=== PATIENT | female | born 1965 | race Caucasian/White ===

== ENCOUNTER 2020-09-15 13:00 | Emergency (ER) | payer MEDICAID ==
[2020-09-15] MEDS ORDERED: BUFFERED LIDOCAINE 10 ML SYRINGE SUBQ STA (13:53)
--- NOTE | 2020-09-15 14:14 | ED Physician Documentation ---
History of Present Illness - Stated complaint Stated Complaint: WOUND - Chief complaint Chief Complaint: Wound - History obtained from History obtained from: Patient - Additonal information Additional information: 55-year-old female here for evaluation of an abscess that has developed on her chest just medial to the right breast. She has been taking Bactrim for about 1 week however the swelling has gotten progressively worse. She has attempted to try and get the abscess to drain but has been unsuccessful. She denies fevers but reports pain in the area. She does have a history of abdominal cellulitis a few years ago that ultimately ruptured and drained on its own. Denies history of diabetes. Has been compliant with Bactrim. Review of Systems Constitutional: reports: Reviewed and negative Eyes: reports: Reviewed and negative Ears: reports: Reviewed and negative Nose: reports: Reviewed and negative Throat: reports: Reviewed and negative Cardiac: reports: Reviewed and negative Respiratory: reports: Reviewed and negative GI: reports: Reviewed and negative : reports: Reviewed and negative Skin: reports: Lesions (abscess right chest) Musculoskeletal: reports: Neck pain Neurologic: reports: Reviewed and negative PD PAST MEDICAL HISTORY - Past Medical History Past Medical History: Yes Cardiovascular: Hypertension Respiratory: Asthma GI: GERD, Hiatal hernia - 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, 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 - Allergies Allergies/Adverse Reactions: Allergies Allergy/AdvReac Type Severity Reaction Status Date / Time amoxicillin Allergy Unknown Verified 09/15/20 13:37 bupropion [From Wellbutrin] Allergy Unknown Verified 09/15/20 13:37 iodine Allergy Unknown Verified 09/15/20 13:37 oxycodone Allergy Unknown Verified 09/15/20 13:37 povidone-iodine Allergy Unknown Verified 09/15/20 13:37 [From Betadine] soap [From Betadine] Allergy Unknown Verified 09/15/20 13:37 - Social History Does the pt smoke?: No Smoking Status: Never smoker PD ED PE EXPANDED - Derm Derm: Abscess (3x3 cm abscess right chest just medial to the brest adjacent to the sternum. fluctuant. no drainage) Results - Vitals Vitals: Vital Signs - 24 hr 09/15/20 13:31 Temperature 36.3 C L Heart Rate 83 Respiratory 16 Rate Blood Pressure 115/94 H O2 Saturation 100 Oxygen O2 Source Room air Procedures - Abscess I&D (location) right chest Preparation: Chlorhexadine Incision: Incised with scalpel, Purulent drainage, Loculations broken, Irrigated, Packed, Culture obtained Other: Pt tolerated well, Dressing applied, Other (already on bactrim) PD MEDICAL DECISION MAKING - ED course Complexity details: re-evaluated patient, considered differential, d/w patient ED course: 55-year-old female presents the emergency department for evaluation of a right chest wound abscess that has failed to improve with a prescription of Bactrim. On exam there was obvious fluctuance. We did do incision and drainage at the bedside with a moderate amount of purulent fluid drained as well as some small loculations. The wound was packed with quarter inch gauze and a culture was obtained. I have advised the patient to remove the packing in 24 hours and other routine care was discussed. No new antibiotics were prescribed today as I feel she should simply finish the course that she is already on. Emergent return precautions discussed for worsening pain or failure of the abscess to resolve. Departure - Departure Disposition: 01 Home, Self Care Clinical Impression: Abscess Condition: Stable Record reviewed to determine appropriate education?: Yes Instructions: ED Abscess IandD Follow-Up: MELANIE TEJEDA [Primary Care Provider] - Comments: Kassidy the abscess has been drained and, therefore I would expect that it starts to feel better over the next 24 to 48 hours. Tomorrow afternoon if you are able I would like you to take a warm shower. When in the shower I would like you to remove the packing. It is okay to allow water and gentle soap to rinse through the wound. Once out of the shower apply any antibiotic ointment such as Neosporin or bacitracin to the wound and cover with a bandage. Please complete your course of antibiotics that you are already on. I would expected this wound to remain red for the next week or so. However the pain should be starting to improve over the next 48 to 72 hours. If not improving, you have fevers, increased pain or any further milky drainage then please return to the emergency department for a second evaluation. I do expect a moderate amount of blood to be on the gauze that is in place over your wound.
[2020-09-15 14:18] VITALS: BP 130/85
== END 2020-09-15 14:30 | disposition home or self-care (01) ==
LOC: ED 13:00
DX: L02.213 Cutaneous abscess of chest wall (principal); I10 Essential (primary) hypertension
CPT/HCPCS: 10060; 87070; 87205

== ENCOUNTER 2021-04-05 | Emergency (ER) | payer MEDICAID ==
--- NOTE | 2021-04-05 00:25 | ED Physician Documentation ---
PD HPI ABD PAIN - Stated complaint Stated Complaint: POST OP, SOA, NAUSEA, CHEST PRESSURE - Chief complaint Chief Complaint: Abd Pain - History obtained from History obtained from: Patient - History of Present Illness Timing - onset: How many hours ago (8) Timing - duration: Hours Timing - details: Gradual onset (The patient had scheduled outpatient EGD and colonoscopy approximately noon today at outside facility. She states there were biopsies done in the stomach and the intestine for polyps. She felt okay going home and had onset after eating of upper abdominal and substernal pain/pressure with nausea.), Still present Quality: Cramping, Aching, Pain Location: Epigastric, Other (substernal) Radiation: Chest Improved by: No: Meds (tried TUMs without improvement) Worsened by: Eating, Palpation (upper abd). No: Breathing Associated symptoms: Nausea. No: Vomiting, Diarrhea, Dysuria Similar symptoms before: Has not had sx before Recently seen: Surgery (Outpatient scheduled EGD and colonoscopy this afternoon approximately noon with standard prep the day before. She felt okay and ate spicy chicken after getting home.) Review of Systems Constitutional: denies: Fever, Chills Nose: denies: Rhinorrhea / runny nose, Congestion Throat: denies: Sore throat Cardiac: reports: Chest pain / pressure. denies: Palpitations Respiratory: denies: Cough, Hemoptysis GI: reports: Abdominal Pain, Nausea. denies: Vomiting, Diarrhea Neurologic: reports: Generalized weakness. 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 - Allergies Allergies/Adverse Reactions: Allergies Allergy/AdvReac Type Severity Reaction Status Date / Time amoxicillin Allergy Unknown Verified 09/15/20 13:37 bupropion [From Wellbutrin] Allergy Unknown Verified 09/15/20 13:37 iodine Allergy Unknown Verified 09/15/20 13:37 oxycodone Allergy Unknown Verified 09/15/20 13:37 povidone-iodine Allergy Unknown Verified 09/15/20 13:37 [From Betadine] soap [From Betadine] Allergy Unknown Verified 09/15/20 13:37 - Social History Does the pt smoke?: No Smoking Status: Never smoker - Family History Family history: reports: CAD PD ED PE NORMAL - Vitals Vital signs reviewed: Yes - General General: Alert and oriented X 3, Well developed/nourished, Other (appears in pain/discomfort.) - Neck Neck: Supple, no meningeal sign, No adenopathy - Cardiac Cardiac: RRR, No murmur - Respiratory Respiratory: Clear bilaterally, Other - Abdomen Abdomen: Normal bowel sounds, Soft, Non distended, No organomegaly, Other (tender in epigastric area with local guarding. No percussion tenderness. Abd not distended. ) - Female Female : Deferred - Rectal Rectal: Deferred - Back Back: No CVA TTP - Derm Derm: Normal color, Warm and dry - Extremities Extremities: No edema, No calf tenderness / cord - Neuro Neuro: Alert and oriented X 3, No motor deficit, Normal speech Results - Vitals Vitals: Vital Signs - 24 hr 04/05/21 04/05/21 04/05/21 00:17 02:23 03:55 Temperature 36.1 C L 36.0 C L 36.1 C L Heart Rate 67 70 68 Respiratory 20 18 18 Rate Blood Pressure 167/77 H 141/73 H 139/71 H O2 Saturation 99 95 100 Oxygen O2 Source Room air - EKG (time done) 00:44 Rate: Rate (enter#) (52) Rhythm: Sinus bradycardia [place]: Normal Intervals: Normal MA QRS: Normal Ischemia: Normal ST segments. No: ST elevation c/w ischemia, ST depression - Labs Labs: Laboratory Tests 04/05/21 04/05/21 04/05/21 00:54 00:54 00:54 WBC 7.4 RBC 4.61 Hgb 12.8 Hct 39.2 MCV 85.0 MCH 27.8 MCHC 32.7 RDW 13.0 Plt Count 241 MPV 9.2 Neut # (Auto) 5.7 Lymph # (Auto) 1.0 L [place] # (Auto) 0.5 Eos # (Auto) 0.1 Baso # (Auto) 0.0 Absolute Nucleated RBC 0.00 Nucleated RBC % 0.0 Sodium 140 Potassium 3.7 Chloride 101 Carbon Dioxide 31 Anion Gap 8.0 BUN 15 Creatinine 0.7 Estimated GFR (MDRD) 87 L Glucose 143 H Calcium 9.5 Total Bilirubin 0.7 AST 23 ALT 37 Alkaline Phosphatase 67 Troponin I High Sens 3.3 Total Protein 6.8 Albumin 4.1 Globulin 2.7 Albumin/Globulin Ratio 1.5 Lipase 30 Urine Color Urine Clarity Urine pH Ur Specific [place] Urine Protein Urine Glucose (UA) Urine Ketones Urine Occult Blood Urine Nitrite Urine Bilirubin Urine Urobilinogen Ur Leukocyte Esterase Urine RBC Urine WBC Ur Squamous Epith Cells Urine Bacteria Ur Microscopic Review Urine Culture Comments 04/05/21 02:40 WBC RBC Hgb Hct MCV MCH MCHC RDW Plt Count MPV Neut # (Auto) Lymph # (Auto) [place] # (Auto) Eos # (Auto) Baso # (Auto) Absolute Nucleated RBC Nucleated RBC % Sodium Potassium Chloride Carbon Dioxide Anion Gap BUN Creatinine Estimated GFR (MDRD) Glucose Calcium Total Bilirubin AST ALT Alkaline Phosphatase Troponin I High Sens Total Protein Albumin Globulin Albumin/Globulin Ratio Lipase Urine Color YELLOW Urine Clarity CLEAR Urine pH 6.5 Ur Specific [place] 1.015 Urine Protein NEGATIVE Urine Glucose (UA) NEGATIVE Urine Ketones NEGATIVE Urine Occult Blood NEGATIVE Urine Nitrite NEGATIVE Urine Bilirubin NEGATIVE Urine Urobilinogen 0.2 (NORMAL) Ur Leukocyte Esterase SMALL H Urine RBC 0-5 Urine WBC 4-5 Ur Squamous Epith Cells MOD Squamous H Urine Bacteria Few Ur Microscopic Review INDICATED Urine Culture Comments NOT INDICATED - Rads (name of study) chest/abd/pelvis CT Radiology: Prelim report reviewed, See rad report PD MEDICAL DECISION MAKING - ED course Complexity details: reviewed results (No signs perforation, free fluid, vascular process. Some GB wall thickening, but patient is not really tender RUQ. Improved with meds here, including GI cocktail. ), re-evaluated patient (feeling much improved after meds. ), considered differential (post EGD/colonoscopy with biopsies. Concern for perforation, post procedure IN, obstruction, pancreatitis, etc. ), d/w patient Departure - Departure Disposition: 01 Home, Self Care Clinical Impression: Upper abdominal pain, History of esophagogastroduodenoscopy (EGD) Chest pain Qualifiers: Chest pain type: unspecified Qualified Code(s): R07.9 - Chest pain, unspecified Condition: Stable Record reviewed to determine appropriate education?: Yes Follow-Up: MELANIE TEJEDA [Primary Care Provider] - Comments: Signs of heart attack on your EKG your blood test. Your blood tests otherwise are good without signs of inflammation of the pancreas liver and no electrolyte abnormalities. Your CT scan does not show any signs of perforation or local fluid collection. There was a hint of inflammation in the wall of the gallbladder but this does not necessarily fit your area of pain. It may appear just slightly inflamed and subsequent to the scope. At this point I think the pain you had was some esophageal irritation and spasming given the normalcy of your testing otherwise. Use ondansetron if needed for nausea and Tylenol or hydrocodone if needed for pain. I would not anticipate further pain episodes beyond a day or so. Antacids may be helpful as well. Follow-up with your surgeon or primary care or return to the ER if persistent symptoms beyond a couple of days. Return if worse.
[2021-04-05] MEDS ORDERED: HYDROmorphone 1 MG/ML CARPUJECT IVP STA (00:48)
[2021-04-05] MEDS ORDERED: SODIUM CHLORIDE 0.9% 1,000 ML IV STA (00:48)
[2021-04-05] MEDS ORDERED: ONDANSETRON 4 MG/2 ML VIAL IVP STA (00:48)
[2021-04-05] MEDS ORDERED: LIDOCAINE VISCOUS 2% 15 ML UDC MM STA (00:49)
[2021-04-05] MEDS ORDERED: MAG HYDROX/AL HYDROX/SIMETH 30 ML UDC PO STA (00:49)
[2021-04-05 00:59] LABS: BASOPHILS % (AUTO) 0.5 %; EOSINOPHILS # (AUTO) 0.1 10^3/uL (0.0-0.7); EOSINOPHILS % (AUTO) 1.9 %; HCT - HEMATOCRIT 39.2 % (37.0-47.0); HGB - HEMOGLOBIN 12.8 g/dL (12.0-16.0); LYMPHOCYTES % (AUTO) 12.9 %; MEAN CORPUSCULAR HEMOGLOBIN 27.8 pg (27.0-31.0); MEAN CORPUSCULAR HGB CONC 32.7 g/dL (32.0-36.0); MEAN PLATELET VOLUME 9.2 fL (7.9-10.8); MONOCYTES # (AUTO) 0.5 10^3/uL (0.0-1.0); MONOCYTES % (AUTO) 7.2 %; NEUTROPHILS # (AUTO) 5.7 10^3/uL (1.5-6.6); PLT - PLATELET COUNT 241 10^3/uL (130-450); RED BLOOD COUNT 4.61 10^6/uL (4.20-5.40); WHITE BLOOD COUNT 7.4 x10^3/uL (4.8-10.8)
[2021-04-05] MEDS ORDERED: IOVERSOL 320 100 ML VIAL IVP ONE ×3 (00:59→02:52)
[2021-04-05 01:12] LABS: ALBUMIN 4.1 g/dL (3.2-5.5); ALBUMIN/GLOBULIN RATIO 1.5 (1.0-2.2); BILIRUBIN,TOTAL 0.7 mg/dL (0.2-1.0); CALCIUM 9.5 mg/dL (8.5-10.3); CREATININE 0.7 mg/dL (0.4-1.0); POTASSIUM 3.7 mmol/L (3.5-5.0); TOTAL PROTEIN 6.8 g/dL (6.7-8.2)
[2021-04-05 02:49] LABS: BILIRUBIN,URINE NEGATIVE (NEGATIVE); CLARITY,URINE CLEAR (CLEAR); GLUCOSE, URINE (UA) NEGATIVE (NEGATIVE); KETONES,URINE (UA) NEGATIVE (NEGATIVE); LEUKOCYTE ESTERASE, URINE SMALL (NEGATIVE); NITRITE,URINE NEGATIVE (NEGATIVE); OCCULT BLOOD,URINE NEGATIVE (NEGATIVE); PH,URINE 6.5 PH (5.0-7.5); PROTEIN,URINE NEGATIVE (NEGATIVE); UROBILINOGEN,URINE 0.2 (NORMAL) E.U./dL (NORMAL)
[2021-04-05 02:58] LABS: BACTERIA,URINE Few /HPF (None Seen); RBC,URINE 0-5 /HPF (0-5); SQUAMOUS EPITHELIAL CELL,UR MOD Squamous (<= Few)
[2021-04-05] MEDS ORDERED: ACETAMINOPHEN 325 MG TABLET PO STA (03:06)
[2021-04-05] MEDS ORDERED: HYDROcod/ACET 5/325 Prepack 4 PO STA (03:40)
[2021-04-05] MEDS ORDERED: ONDANSETRON ODT 4 MG Prepack 2 TL PRN (03:40)
[2021-04-05 03:56] VITALS: BP 139/71
--- NOTE | 2021-04-05 08:30 | CT Report ---
PROCEDURE: CHEST W INDICATIONS: upper abd/chest pain, s/p EGD/biopsies CONTRAST: IV CONTRAST: Optiray 320 ml: 100 PO CONTRAST: *NO PO CONTRAST TECHNIQUE: After the administration of intravenous contrast, 5 mm thick sections acquired from the pulmonary api thompson to the posterior costophrenic angles. 7 mm thick coronal MIP reformats were acquired. For radia tion dose reduction, the following was used: automated exposure control, adjustment of mA and/or kV according to patient size. COMPARISON: CT abdomen pelvis 04/05/2021 FINDINGS: Image quality: Excellent. Lungs and pleura: No acute air space opacities. No pleural effusions or pneumothorax. Central and peripheral airways are patent and normal in caliber. 2 mm lateral left lower lobe pleural nodule (12 /214) is noted. No priors are available for comparison. 5 mm right lower lobe nodule is present (27/11 15). Mediastinum: Heart size is normal. No pericardial effusion. No mediastinal or hilar adenopathy by size criteria. Thoracic aorta and central pulmonary arteries are normal in size. Esophagus demonstr ates mild fluid within the distal aspect. Mild hiatal hernia. Bones and chest wall: No suspicious bony lesions. No vertebral body compression fractures. No axil nelda or supraclavicular adenopathy by size criteria. The thyroid is normal in size and there are no incidental findings.. Abdomen: There is an appearance of gallbladder wall thickening. Upper abdominal bowel loops are norm al in caliber. IMPRESSION: 1. No consolidations or effusions. 2. Mild hiatal hernia. Mild fluid is noted within the distal esophagus, overall nonspecific. 3. 2 mm left lower lobe nodule, as well as 5 mm right lower lobe nodule. They are overall nonspecific . Recommend interval follow-up as below. No priors are available for comparison. 4. Appearance of gallbladder wall thickening. Cannot exclude developing cholecystitis. As indicated, ultrasound may be obtained. Fleischner Society criteria for SOLID lung nodule followup. Nodule size (mm) * <6 * Low-risk patient: No follow-up needed * High-risk patient: Optional CT at 12 months; if no change, no further follow-up * 6-8 * Low-risk patient: Initial follow-up CT at 6-12 months, then optional CT at 18-24 months. * High-risk patient: Initial follow-up CT at CT at 6-[address] 18-24 months. * >8 single nodule * Low-risk patient: CT, PET or biopsy at 3 months. * High-risk patient: Same as for low-risk pts. * >8 multiple nodules * Low-risk patient: CT at 3-6 months, then optional CT at 18-24 months * High-risk patient: CT at 3-6 months, then CT at 18-24 months CLINICAL RECOMMENDATION STATEMENTS: In patients <35 years with an ITN detected on CT, MRI, or extrathyroidal ultrasound, the Committee re commends further evaluation with dedicated thyroid ultrasound if the nodule is ?1 cm and has no suspi cious imaging features, and if the patient has normal life expectancy. In patients ?35 years with an ITN detected on CT, MRI, or extrathyroidal ultrasound, the Committee re commends further evaluation with dedicated thyroid ultrasound if the nodule is ?1.5 cm and has no leilani picious imaging features, and if the patient has normal life expectancy. (ACR, 2014) Reviewed by: Awa Raymundo MD on 04/05/2021 8:28 AM PDT Approved by: Awa Raymundo MD on 04/05/2021 8:28 AM PDT Station ID: [id number]
--- NOTE | 2021-04-05 08:52 | CT Report ---
PROCEDURE: Abdomen/Pelvis W INDICATIONS: upper abd pain, s/p EGD/colonoscopy this morning CONTRAST: IV CONTRAST: Optiray 320 ml: 100 PO CONTRAST: *NO PO CONTRAST TECHNIQUE: After the administration of IV contrast, 5 mm thick sections acquired from the diaphragms to the symp hysis. 5 mm thick coronal and sagittal reformats were acquired. For radiation dose reduction, the f ollowing was used: automated exposure control, adjustment of mA and/or kV according to patient size. COMPARISON: None. FINDINGS: ABDOMEN: Lung bases: Scattered subsegmental scarring/atelectasis. No acute consolidation. Heart: Borderline enlarged. Liver: Hepatic steatosis Gallbladder: No radiopaque calculus seen however there is suggestion of the lateral wall thickening i n particular involving the anterior segment. This could be better assessed with ultrasound as clinica lly necessary. Bile ducts: Normal. Pancreas: Normal. Spleen: Subcentimeter nonspecific hypodensity in the anterior tip. Adrenals: Possible thickening of the lateral limb of the right adrenal gland raising possibility of a denoma, technically indeterminate. Long-term CT surveillance could be performed to document stability . Kidneys and ureters: No hydronephrosis. Simple appearing left renal cyst measuring 2 x 3 cm. No uroli thiasis. The ureters appear decompressed. Bilateral pelvic phleboliths. Stomach and duodenum: Normal. Bowel: Moderate stool. No evidence of bowel obstruction. The appendix is not clearly identified howev er no suspicious inflammatory changes in the right lower quadrant. Other: No free fluid or air. Abdominal nodes: Normal. Aorta: Normal in size. IVC: Normal. Ventral wall: Normal. PELVIS: Bladder: Tiny possible urachal diverticulum image 79/13. Pelvic nodes: Normal. Inguinal: No hernia. Bones: Diffuse discogenic changes. No compression fracture identified. IMPRESSION: Suggestion of gallbladder wall thickening in particular involving the anterior segment. This raises t he possibility of acute cholecystitis. No definite gallstones evident by CT. Further evaluation recom mended with ultrasound. Left renal cyst No evidence of bowel obstruction Findings are concordant with the preliminary study interpretation provided at the time of the study. Reviewed by: Frantz Dye MD on 04/05/2021 8:51 AM PDT Approved by: Frantz Dye MD on 04/05/2021 8:51 AM PDT Station ID: [id number]
== END 2021-04-05 04:09 | disposition home or self-care (01) ==
LOC: ED
DX: R10.13 Epigastric pain (principal); R07.89 Other chest pain; R11.0 Nausea; Z98.890 Other specified postprocedural states; K44.9 Diaphragmatic hernia without obstruction or gangrene; K21.9 Gastro-esophageal reflux disease without esophagitis; K82.8 Other specified diseases of gallbladder; R00.1 Bradycardia, unspecified; I10 Essential (primary) hypertension
CPT/HCPCS: 36415; 71260; 74177; 80053; 81001; 83690; 84484; 85025; 93005; 96374; 96375; 99284; A9270; J1170; Q9967; 81003; 87086

== ENCOUNTER 2021-05-12 14:51 | Outpatient (CLI) | payer MEDICAID ==
[2021-05-12 21:02] LABS: ESTIMATED AVERAGE GLUCOSE 114 mg/dL (70-100); HEMOGLOBIN A1c% 5.6 % (4.27-6.07)
== END 2021-05-12 14:52 | disposition home or self-care (01) ==
LOC: LAB.S 14:51
PROVIDERS: ATTEND Naprapath
DX: Z00.01 Encounter for general adult medical examination with abnormal findings (principal); Z13.1 Encounter for screening for diabetes mellitus; R73.9 Hyperglycemia, unspecified
CPT/HCPCS: 36415; 83036

== ENCOUNTER 2021-10-30 11:20 | Emergency (ER) | payer MEDICAID ==
--- NOTE | 2021-10-30 14:38 | ED Physician Documentation ---
History of Present Illness - Stated complaint Stated Complaint: COUGH - Chief complaint Chief Complaint: Resp - Additonal information Additional information: 56-year-old female presents emergency department for evaluation of cough ongoing for 1 week. Particularly worse at night with this time. She occasionally has congestion though not consistently. There have been no fevers. She does have a history of asthma and has been using her inhaler and nebulizer much more frequently. Her grandson was sick with similar but has improved. Patient is fully vaccinated and boosted for COVID-19 and tested negative for COVID-19 on a home test October 26. Review of Systems Constitutional: denies: Fever, Chills Eyes: reports: Reviewed and negative Ears: reports: Reviewed and negative Throat: reports: Reviewed and negative Cardiac: reports: Reviewed and negative Respiratory: reports: Dyspnea, Cough. 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 - Present Medications Home Medications: Ambulatory Orders Medication Instructions Recorded Confirmed Azithromycin [Zithromax] 0 mg PO DAILY #6 tablet 10/30/21 Benzonatate [Tessalon] 100 mg PO TID PRN #20 cap 10/30/21 Cefpodoxime Proxetil [Vantin] 100 mg PO Q12H #14 tablet 10/30/21 predniSONE [Deltasone] 40 mg PO DAILY 5 Days #10 tablet 10/30/21 - Allergies Allergies/Adverse Reactions: Allergies Allergy/AdvReac Type Severity Reaction Status Date / Time amoxicillin Allergy Unknown Verified 10/30/21 11:41 bupropion [From Wellbutrin] Allergy Unknown Verified 10/30/21 11:41 iodine Allergy Unknown Verified 10/30/21 11:41 oxycodone Allergy Unknown Verified 10/30/21 11:41 povidone-iodine Allergy Unknown Verified 10/30/21 11:41 [From Betadine] soap [From Betadine] Allergy Unknown Verified 10/30/21 11:41 - Social History Does the pt smoke?: No Smoking Status: Never smoker PD ED PE NORMAL - General General: Alert and oriented X 3, No acute distress - HEENT HEENT: PERRL - Neck Neck: Supple, no meningeal sign, No bony TTP - Cardiac Cardiac: RRR, No murmur - Abdomen Abdomen: Normal bowel sounds, Soft, Non tender, Non distended - Back Back: No CVA TTP, No spinal TTP - Derm Derm: Normal color, Warm and dry - Extremities Extremities: No deformity - Neuro Neuro: Alert and oriented X 3 Eye Opening: Spontaneous Motor: Obeys Commands Verbal: Oriented GCS Score: 15 Results - Vitals Vitals: Vital Signs - 24 hr 10/30/21 11:41 Temperature 36.5 C Heart Rate 69 Respiratory 16 Rate Blood Pressure 145/69 H O2 Saturation 96 Oxygen O2 Source Room air - Rads (name of study) CXR Radiology: Final report received (Possible small focal opacity in the left upper lung zone and questionably at the left lower lung zone are nonspecific but could be secondary to a mild or developing atypical pneumonia) PD MEDICAL DECISION MAKING - ED course Complexity details: reviewed results, re-evaluated patient, considered differential, d/w patient ED course: 56-year-old female who has a history no significant for asthma presents emergency department for evaluation of her persistent cough for 1 week. Reports that her grandson was initially sick. The cough is present throughout the day but especially worse at night when laying flat. She does have some moderate congestion. [id number] cough aids and suppressants have not helped. She has been using her albuterol inhaler as well as nebulizer more frequently. No fevers no hemoptysis. She is not a smoker. We do have a COVID-19 screen pending on her though she tested negative last week and is fully vaccinated. Chest x-ray is somewhat suggestive of a focal pneumonia in the right upper and lower lung samuels. Patient will be started on some prednisone for what I suspect is an asthma exacerbation as well as azithromycin for possible findings atypical pneumonia. Tessalon prescription is sent for worsening cough. Emergent return precautions were discussed. Departure - Departure Disposition: 01 Home, Self Care Clinical Impression: Community acquired pneumonia Qualifiers: Laterality: left Lung location: unspecified part of lung Qualified Code(s): J18.9 - Pneumonia, unspecified organism Asthma exacerbation Qualifiers: Asthma severity: moderate Asthma persistence: persistent Qualified Code(s): J45.41 - Moderate persistent asthma with (acute) exacerbation Condition: Stable Record reviewed to determine appropriate education?: Yes Instructions: ED Asthma Acute Ch, ED Pneumonia Ch Follow-Up: JHONATAN ERNST MD [Primary Care Provider] - Prescriptions: predniSONE [Deltasone] 40 mg PO DAILY 5 Days #10 tablet Benzonatate [Tessalon] 100 mg PO TID PRN #20 cap PRN Reason: Cough Cefpodoxime Proxetil [Vantin] 100 mg PO Q12H #14 tablet Azithromycin [Zithromax] 0 mg PO DAILY #6 tablet Comments: Kassidy you are seen today in the emergency department for cough that has gotten progressively worse over the last week. Your chest x-ray suggest that you may be developing an early pneumonia. Please fill the prescription for the antibiotics that have been sent to the [facility] in [place]. I have also sent a prescription for some Tessalon Perles which should help reduce the severity of your cough. The prednisone will help with your asthma exacerbation. With these medications I would expect that you are feeling better in the next 48 to 72 hours. If your cough is not improving, you have severe chest pain or shortness of air then please return immediately to the ER for second evaluation.
--- NOTE | 2021-10-30 14:52 | XRAY Report ---
PROCEDURE: Chest 1 View X-Ray INDICATIONS: chest pain TECHNIQUE: One view of the chest was acquired. COMPARISON: CT chest 04/05/2021 FINDINGS: Surgical changes and devices: None. Lungs and pleura: No pleural effusions or pneumothorax. Possible small patchy opacities are seen in the left upper and lower lung zones. Mediastinum: Mediastinal contours appear normal. Heart size is normal. Bones and chest wall: No suspicious bony lesions. Overlying soft tissues appear unremarkable. IMPRESSION: Possible small focal opacity at the left upper lung zone and questionably at the left lower lung zone are nonspecific, but could be secondary to a mild or developing atypical pneumonia. Enlarging pulmon maddi nodules are felt to be less likely. Reviewed by: Martell Trinh MD on 10/30/2021 2:51 PM PST Approved by: Martell Trinh MD on 10/30/2021 2:51 PM PST Station ID: [id number]
[2021-10-30 15:32] VITALS: BP 165/89
== END 2021-10-30 15:31 | disposition home or self-care (01) ==
LOC: ED 11:20
DX: J18.9 Pneumonia, unspecified organism (principal); J45.41 Moderate persistent asthma with (acute) exacerbation; I10 Essential (primary) hypertension; Z20.822 Contact with and (suspected) exposure to COVID-19
CPT/HCPCS: 81599; 99284

== ENCOUNTER 2022-02-01 11:40 | Emergency (ER) | payer MEDICAID ==
[2022-02-01] MEDS ORDERED: NIRMATRELVIR/RITONAVIR PREPACK PO STA (11:58)
[2022-02-01 12:02] VITALS: BP 157/83
--- NOTE | 2022-02-01 12:04 | ED Physician Documentation ---
History of Present Illness - Stated complaint Stated Complaint: SOA - Chief complaint Chief Complaint: Resp - History obtained from History obtained from: Patient - Additonal information Additional information: Sick for 4 days with increased shortness of breath, cough, chills and runny nose. Took a home COVID test last night that was positive. She is vaccinated and boosted. She has started ivermectin, vitamin C, zinc, hydroxychloroquine, and a azithromycin. Review of Systems Constitutional: reports: Chills, Myalgias, Fatigue. 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 - Present Medications Home Medications: Ambulatory Orders Medication Instructions Recorded Confirmed Azithromycin [Zithromax] 0 mg PO DAILY #6 tablet 10/30/21 Benzonatate [Tessalon] 100 mg PO TID PRN #20 cap 10/30/21 Cefpodoxime Proxetil [Vantin] 100 mg PO Q12H #14 tablet 10/30/21 predniSONE [Deltasone] 40 mg PO DAILY 5 Days #10 tablet 10/30/21 - Allergies Allergies/Adverse Reactions: Allergies Allergy/AdvReac Type Severity Reaction Status Date / Time amoxicillin Allergy Unknown Verified 02/01/22 11:58 bupropion [From Wellbutrin] Allergy Unknown Verified 02/01/22 11:58 iodine Allergy Unknown Verified 02/01/22 11:58 oxycodone Allergy Unknown Verified 02/01/22 11:58 povidone-iodine Allergy Unknown Verified 02/01/22 11:58 [From Betadine] soap [From Betadine] Allergy Unknown Verified 02/01/22 11:58 - Social History Does the pt smoke?: No Smoking Status: Never smoker PD ED PE NORMAL - Vitals Vital signs reviewed: Yes - General General: Alert and oriented X 3, No acute distress - HEENT HEENT: PERRL, EOMI - Neck Neck: Supple, no meningeal sign, No bony TTP - Cardiac Cardiac: RRR, No murmur - Respiratory Respiratory: No respiratory distress, Other (Lungs are clear without wheezing or other focal findings) - Derm Derm: Normal color, Warm and dry - Extremities Extremities: No edema, No calf tenderness / cord - Neuro Neuro: Alert and oriented X 3, Normal speech Results - Vitals Vitals: Vital Signs - 24 hr 02/01/22 11:56 Temperature 36.9 C Heart Rate 82 Respiratory 19 Rate Blood Pressure 157/83 H O2 Saturation 97 Oxygen O2 Source Room air PD MEDICAL DECISION MAKING - ED course ED course: 56-year-old woman with history of asthma presents with symptomatic COVID despite being vaccinated and boosted. She would be a good candidate for paxlovid and is not on any medications that it interacts with. Departure - Departure Disposition: Home, Self Care Clinical Impression: COVID-19 Condition: Good Record reviewed to determine appropriate education?: Yes Instructions: ED Viral Syndrome Comments: You are seen today for COVID. We dispensed paxlovid which is thought to be the most effective of the antiviral therapies currently. Take it as prescribed. Return if worsening or if you develop more severe shortness of breath. The other therapies you are on her for the most part proven not to be effective. The zinc and vitamin C probably do not have any downsides, but the hydroxychloroquine, ivermectin, and azithromycin have been proven not to be effective for COVID. You need to self quarantine for 10 days. Do not leave your house. Do not get near anybody.
== END 2022-02-01 12:18 | disposition home or self-care (01) ==
LOC: ED 11:40
DX: U07.1 COVID-19 (principal); I10 Essential (primary) hypertension
CPT/HCPCS: 99282; 99283; J3490

== ENCOUNTER 2023-06-14 20:16 | Emergency (ER) | payer MEDICAID ==
[2023-06-14 20:29] VITALS: BP 150/75
--- NOTE | 2023-06-14 20:33 | ED Physician Documentation ---
History of Present Illness - Stated complaint Stated Complaint: LIP INJ - Chief complaint Chief Complaint: General - History obtained from History obtained from: Patient - Additonal information Additional information: HPI from patient. Patient c/o swollen and painful lower lip x 6 days. This started the same day she was in the sun all day and sustained sunburn to her face and lips. She says the pain was in proportion to (ie expected for) the extent of the sunburn for the first 2-3 days, but the redness and facial pain was resolving by day 4, her lower lip continued to worsen in extent of swelling and pain, and developed crusting and scabbing. The lower lip pain and swelling have progressed to the point of her seeking ED care/evaluation. Denies h/o similar symptoms. 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 - Present Medications Home Medications: Ambulatory Orders Medication Instructions Recorded Confirmed Azithromycin [Zithromax] 0 mg PO DAILY #6 tablet 10/30/21 Benzonatate [Tessalon] 100 mg PO TID PRN #20 cap 10/30/21 Cefpodoxime Proxetil [Vantin] 100 mg PO Q12H #14 tablet 10/30/21 predniSONE [Deltasone] 40 mg PO DAILY 5 Days #10 tablet 10/30/21 Doxycycline [Vibramycin] 100 mg PO BID #14 tablet 06/14/23 HYDROcod/ACETAM 5/325 [Doon 5/325] 1 - 2 tablet PO Q6H PRN #14 tablet 06/14/23 Lidocaine Viscous 2% [Xylocaine 1 film MM Q4H PRN #100 ml 06/14/23 Viscous 2%] - Allergies Allergies/Adverse Reactions: Allergies Allergy/AdvReac Type Severity Reaction Status Date / Time amoxicillin Allergy Unknown Verified 06/14/23 20:20 bupropion [From Wellbutrin] Allergy Unknown Verified 06/14/23 20:20 iodine Allergy Unknown Verified 06/14/23 20:20 oxycodone Allergy Unknown Verified 06/14/23 20:20 povidone-iodine Allergy Unknown Verified 06/14/23 20:20 [From Betadine] soap [From Betadine] Allergy Unknown Verified 06/14/23 20:20 - Social History Does the pt smoke?: No Smoking Status: Never smoker PD ED PE NORMAL - Vitals Vital signs reviewed: Yes - General General: Alert and oriented X 3, No acute distress, Well developed/nourished PD ED PE EXPANDED - HEENT HEENT: Other (lower lip is swollen with honey-colored crusting and slight fissuring (only involving within milad border and not involving wet mucosa). no fluctuance nor discharge) Results - Vitals Vitals: Oxygen O2 Source Room air PD Medical Decision Making - ED course Complexity details: considered differential, d/w patient ED course: honey-colored crusting and swelling of lower lip suggestive of staphylococcal infection; given doxycycline PO as well as viscous lidocaine (for topical use) and vicodin. Rx for these medications e-prescribed to patient's pharmacy of choice. Return precautions discussed. Departure - Departure Disposition: 01 Home, Self Care Clinical Impression: Staph infection Condition: Good Instructions: ED Staph Infec Abx Tx Only Prescriptions: HYDROcod/ACETAM 5/325 [Doon 5/325] 1 - 2 tablet PO Q6H PRN #14 tablet PRN Reason: Pain Doxycycline [Vibramycin] 100 mg PO BID #14 tablet Lidocaine Viscous 2% [Xylocaine Viscous 2%] 1 film MM Q4H PRN #100 ml PRN Reason: Pain 5-7 Comments: It appears that you have an infection of your lower lip. The appearance is suggestive of a staph infection, although other bacteria can cause similar infections. You are given the first dose of an antibiotic (doxycycline) in the emergency department, and a prescription for a 1 week course of this antibiotic has been electronically submitted to the [facility] pharmacy in [place]. I have also submitted prescriptions for Vicodin (narcotic/opiate pain medication) as well as the topical viscous lidocaine (numbing agent) to the same pharmacy. Follow up with your primary care provider in 3-5 days for reevaluation. I am prescribing a short course of narcotic pain medication for you. These are potentially dangerous and addictive medications that should be used carefully. These medications may constipate you. Take an yxpo-[id number]-[id number] stool softener (docusate) twice daily with plenty of water while taking these medications. If you go 24 hours without a bowel movement, take [id number]-vym-[id number] miralax, per package instructions. Do not drink or drive while taking these medications. If you received narcotic or sedating medications while in the emergency departm ent, do not drive for 24 hours. Store this medication in a safe, secure place and out of reach of children. It is a violation of federal law to give or sell this medication to another person or to use in a manner other than prescribed. The ED will not refill narcotic prescriptions, including prescriptions lost or stolen. To dispose of unwanted medications: 1. [facility] at [address] in [place] has a medication drop box. They accept prescription medications (in pill form) Saturday through Saturday 9:00 a.m. to 5:00 p.m. 2. The [facility] accepts prescription medications (in pill form only) for disposal year round. Call for more information. 3. Contact the [facility] for the next [employer] sponsored prescription drug collection event. , [phone], or [phone]; Forms: PCP List Discharge Date/Time: 06/14/23 21:34
[2023-06-14] MEDS ORDERED: LIDOCAINE VISCOUS 2% 15 ML ORAL SYRINGE MM STA (20:54)
[2023-06-14] MEDS ORDERED: DOXYCYCLINE 100 MG TABLET PO STA (20:55)
[2023-06-14] MEDS ORDERED: HYDROcod/ACET 5/325 Prepack 4 PO STA (20:55)
== END 2023-06-14 21:34 | disposition home or self-care (01) ==
LOC: ED 20:16
DX: K13.0 Diseases of lips (principal); B95.8 Unspecified staphylococcus as the cause of diseases classified elsewhere
CPT/HCPCS: 99282; 99283; A9270

== ENCOUNTER 2023-09-24 10:11 | Outpatient (CLI) | payer MEDICAID | END 2023-09-24 10:12 | disposition EMS.NT | LOC: EMS 10:11 | DX: R07.9 Chest pain, unspecified (principal) ==

== ENCOUNTER 2023-09-24 11:04 | Emergency (ER) | payer MEDICAID ==
--- NOTE | 2023-09-24 12:01 | ED Physician Documentation ---
PD HPI CHEST PAIN - Stated complaint Stated Complaint: IRREGULAR HR - Chief complaint Chief Complaint: Cardiac - History obtained from History obtained from: Patient - Additional information Additional information: The patient comes to the emergency department chief complaint of pain under her left breast on and off for the last several days, getting worse. She states that it usually last 3 to 4 minutes and seems to come on randomly without a specific trigger. She states that sometimes feels a little lightheaded and gets a little headache along with it but denies any palpitations. No nausea or shortness of breath. No diaphoresis. The patient states that it does not seem to be exertionally related but it is also not really positional or related to deep breaths or other mechanical movements of her chest wall. She denies any upper respiratory symptoms such as cough. The patient has a history of hypertension which is fairly well controlled on losartan. She quit smoking 20 years ago. No family h/o CAD/MD or DVT. 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 - Present Medications Home Medications: Ambulatory Orders Medication Instructions Recorded Confirmed Budesonide/Formoterol Fumarate 2 puffs IH BID 09/24/23 09/24/23 [Symbicort 160-4.5 Mcg Inhaler] Losartan/Hydrochlorothiazide 1 each PO DAILY 09/24/23 09/24/23 [Hyzaar 50-12.5 Tablet] Montelukast [Singulair] 10 mg PO DAILY 09/24/23 09/24/23 Progesterone, Micronized 200 mg PO HS 09/24/23 09/24/23 [Prometrium] - Allergies Allergies/Adverse Reactions: Allergies Allergy/AdvReac Type Severity Reaction Status Date / Time amoxicillin Allergy Unknown Verified 09/24/23 11:14 bupropion [From Wellbutrin] Allergy Unknown Verified 09/24/23 11:14 iodine Allergy Unknown Verified 09/24/23 11:14 oxycodone Allergy Unknown Verified 09/24/23 11:14 povidone-iodine Allergy Unknown Verified 09/24/23 11:14 [From Betadine] soap [From Betadine] Allergy Unknown Verified 09/24/23 11:14 - Social History Does the pt smoke?: No Smoking Status: Never smoker Does the pt drink ETOH?: No Does the pt have substance abuse?: No PD ED PE NORMAL - Vitals Vital signs reviewed: Yes - General General: Alert and oriented X 3, No acute distress, Well developed/nourished - HEENT HEENT: Atraumatic, PERRL, EOMI, Moist mucous membranes - Neck Neck: Supple, no meningeal sign - Cardiac Cardiac: RRR, No murmur, Strong equal pulses - Respiratory Respiratory: No respiratory distress, Clear bilaterally - Abdomen Abdomen: Soft, Non tender, Non distended - Derm Derm: Normal color, Warm and dry, No rash - Extremities Extremities: No deformity, No edema, No calf tenderness / cord - Neuro Neuro: Alert and oriented X 3 - Psych Psych: Normal mood, Normal affect Results - Vitals Vitals: Oxygen O2 Source Room air - EKG (time done) 1121 EKG releavant findings:: EKG personally interpreted by author of this note. Relevant findings are: Rate: Rate (enter#) (71) Rhythm: NSR Dawson: Normal Intervals: Normal NC QRS: Normal Ischemia: Normal ST segments Compare to prior EKG: Old EKG unavailable Computer interpretation: Agree with computer - Labs Labs: Laboratory Tests 09/24/23 09/24/23 09/24/23 11:59 11:59 11:59 WBC 4.6 L RBC 4.99 Hgb 14.0 Hct 42.5 MCV 85.2 MCH 28.1 MCHC 32.9 RDW 13.1 Plt Count 261 MPV 9.6 Neut # (Auto) 2.7 Lymph # (Auto) 1.3 L Larimer # (Auto) 0.4 Eos # (Auto) 0.1 Baso # (Auto) 0.0 Absolute Nucleated RBC 0.00 Nucleated RBC % 0.0 D-Dimer < 200.0 L Sodium 138 Potassium 3.6 Chloride 104 Carbon Dioxide 27 Anion Gap 7.0 BUN 12 Creatinine 0.5 L Estimated GFR (MDRD) 128 Glucose 98 Calcium 9.5 Total Bilirubin 0.4 AST 14 ALT 26 Alkaline Phosphatase 74 Troponin I High Sens 2.9 Total Protein 6.6 Albumin 4.3 Globulin 2.3 Albumin/Globulin Ratio 1.9 Lipase 31 09/24/23 13:49 WBC RBC Hgb Hct MCV MCH MCHC RDW Plt Count MPV Neut # (Auto) Lymph # (Auto) Larimer # (Auto) Eos # (Auto) Baso # (Auto) Absolute Nucleated RBC Nucleated RBC % D-Dimer Sodium Potassium Chloride Carbon Dioxide Anion Gap BUN Creatinine Estimated GFR (MDRD) Glucose Calcium Total Bilirubin AST ALT Alkaline Phosphatase Troponin I High Sens 3.2 Total Protein Albumin Globulin Albumin/Globulin Ratio Lipase - Rads (name of study) CXR Relevant Findings:: Final report received, See rad report (nad) PD Medical Decision Making - ED course Complexity details: reviewed results, re-evaluated patient, considered differential, d/w patient ED course: Work-up, including EKG, CXR, and labs with 2 sets of troponins, was negative. The pt had very atypical pain, but I did advise her that it is important to follow up with her PCP to discuss getting scheduled for stress test. We have also discussed the need for immediate return to the ED, should she develop severe CP, especially if associated with SOB, diaphoresis, or nausea. Departure - Departure Disposition: 01 Home, Self Care Clinical Impression: Chest pain Qualifiers: Chest pain type: unspecified Qualified Code(s): R07.9 - Chest pain, unspecified Condition: Stable Instructions: ED Chest Pain Atypical Unkn Cause Comments: There is no evidence of an emergent cause of your chest pain today. Your EKG looks great, as do your laboratory studies, including repeat cardiac enzymes. I does not clear exactly what has caused the pain you are having in your chest, though there are many nonemergent potential causes as well. Patient it is important that you follow-up with your primary doctor to get set up for a stress test to follow-up on the chest pain. Please call first thing tomorrow morning to make the next available appointment, and be sure to let them know you were in the emergency department for chest pain. If you develop severe pain with shortness of breath, please return to the emergency department for reevaluation. Forms: PCP List Discharge Date/Time: 09/24/23 14:45
[2023-09-24 12:08] LABS: BASOPHILS % (AUTO) 0.7 %; EOSINOPHILS # (AUTO) 0.1 10^3/uL (0.0-0.7); EOSINOPHILS % (AUTO) 2.4 %; HCT - HEMATOCRIT 42.5 % (37.0-47.0); LYMPHOCYTES # (AUTO) 1.3 10^3/uL (1.5-3.5); LYMPHOCYTES % (AUTO) 28.8 %; MEAN CORPUSCULAR HEMOGLOBIN 28.1 pg (27.0-31.0); MEAN CORPUSCULAR HGB CONC 32.9 g/dL (32.0-36.0); MEAN CORPUSCULAR VOLUME 85.2 fL (81.0-99.0); MEAN PLATELET VOLUME 9.6 fL (7.9-10.8); MONOCYTES # (AUTO) 0.4 10^3/uL (0.0-1.0); MONOCYTES % (AUTO) 9.2 %; NEUTROPHILS # (AUTO) 2.7 10^3/uL (1.5-6.6); NEUTROPHILS % (AUTO) 58.5 %; PLT - PLATELET COUNT 261 10^3/uL (130-450); RED BLOOD COUNT 4.99 10^6/uL (4.20-5.40); RED CELL DISTRIBUTION WIDTH 13.1 % (12.0-15.0); WHITE BLOOD COUNT 4.6 x10^3/uL (4.8-10.8)
--- NOTE | 2023-09-24 12:17 | XRAY Report ---
PROCEDURE: Chest 1 View X-Ray INDICATIONS: Chest pain TECHNIQUE: One view of the chest was acquired. COMPARISON: Chest xray 10/30/21 FINDINGS: Surgical changes and devices: None. Lungs and pleura: No pleural effusions or pneumothorax. Lungs are clear. Mediastinum: Mediastinal contours appear normal. Heart size is normal. Bones and chest wall: No suspicious bony lesions. Overlying soft tissues appear unremarkable. IMPRESSION: No acute cardiopulmonary process. Reviewed by: Awa Raymundo MD on 09/24/2023 12:15 PM [facility] Approved by: Awa Raymundo MD on 09/24/2023 12:15 PM [facility] Station ID: [id number]
[2023-09-24 12:29] LABS: ALBUMIN 4.3 g/dL (3.2-5.5); ALBUMIN/GLOBULIN RATIO 1.9 (1.0-2.2); BILIRUBIN,TOTAL 0.4 mg/dL (0.2-1.0); CALCIUM 9.5 mg/dL (8.5-10.3); CREATININE 0.5 mg/dL (0.6-1.3); POTASSIUM 3.6 mmol/L (3.5-4.5); TOTAL PROTEIN 6.6 g/dL (6.4-8.9); TROPONIN I HIGH SENSITIVITY 2.9 ng/L (2.3-14.8)
[2023-09-24 14:37] VITALS: BP 150/81; O2SAT 98
== END 2023-09-24 14:45 | disposition home or self-care (01) ==
LOC: ED 11:04
DX: R07.9 Chest pain, unspecified (principal); I10 Essential (primary) hypertension
CPT/HCPCS: 36415; 80053; 83690; 84484; 85025; 85379; 93005; 99283; 99284

== ENCOUNTER 2024-03-12 14:59 | Emergency (ER) | payer MEDICAID ==
[2024-03-12 15:19] VITALS: BP 176/73; O2SAT 98
[2024-03-12 15:33] LABS: RAPID STREP SCREEN Negative (Negative)
[2024-03-12] MEDS: IPRATROPIUM/ALBUTEROL 3 ML NEB INH STA (15:34)
[2024-03-12 16:11] LABS: B. PARAPERTUSSIS- RESP PCR PAN NOT DETECTED; B. PERTUSSIS- RESP PCR PANEL NOT DETECTED; C. PNEUMONIAE- RESP PCR PANEL NOT DETECTED; CORONAVIRUS 229E-RESP PCR NOT DETECTED; CORONAVIRUS HKU1-RESP PCR NOT DETECTED; CORONAVIRUS NL63-RESP PCR NOT DETECTED; CORONAVIRUS OC43-RESP PCR NOT DETECTED; HUMAN METAPNEUMOVIRUS NOT DETECTED; INFLUENZA A- RESP PCR PANEL NOT DETECTED; INFLUENZA B - RESP PCR PANEL NOT DETECTED; M. PNEUMONIAE- RESP PCR PANEL NOT DETECTED; PARAINFLUENZA VIRUS 1 NOT DETECTED; PARAINFLUENZA VIRUS 2 NOT DETECTED; PARAINFLUENZA VIRUS 3 NOT DETECTED; PARAINFLUENZA VIRUS 4 NOT DETECTED; RHINOVIRUS/ENTEROVIRUS NOT DETECTED; RSV- RESP PCR PANEL NOT DETECTED; SARS-CoV-2 -RESP PCR PANEL NOT DETECTED
--- NOTE | 2024-03-12 16:46 | XRAY Report ---
PROCEDURE: Chest 2V INDICATIONS: cough TECHNIQUE: 2 views of the chest were acquired. COMPARISON: Chest x-ray, 09/24/2023. FINDINGS: Surgical changes and devices: None. Lungs and pleura: No pleural effusions or pneumothorax. Lungs are clear. Mediastinum: Mediastinal contours appear normal. Heart size is normal. Bones and chest wall: No suspicious bony lesions. Overlying soft tissues appear unremarkable. IMPRESSION: No acute cardiopulmonary process. Reviewed by: Gene Oneill MD on 03/12/2024 4:45 PM PDT Approved by: Gene Oneill MD on 03/12/2024 4:45 PM PDT Station ID: [id number]
--- NOTE | 2024-03-12 16:56 | ED Physician Documentation ---
History of Present Illness - Stated complaint Stated Complaint: SORE THROAT, COUGH, HEAD PRESSURE - Chief complaint Chief Complaint: Heent - History obtained from History obtained from: Patient - History of Present Illness Timing: Today Pain level max: 0 Pain level now: 0 - Additonal information Additional information: 59-year-old female presents to the emergency department with cough, congestion and mild wheezing for the past 10 days. She states her was sick with same, took him about 2 weeks to get better. She states she is not having fevers. Does not use oxygen at home. Has a history of asthma. Has inhalers at home as well as a nebulizer. Has not used her nebulizer. She states that she h as a mild sore throat. Has not taken a COVID test. Nothing makes it better or worse. Review of Systems Constitutional: denies: Fever, Chills Throat: denies: Sore throat Cardiac: denies: Chest pain / pressure Respiratory: reports: Cough, Wheezing. 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 - Present Medications Home Medications: Ambulatory Orders Medication Instructions Recorded Confirmed Budesonide/Formoterol Fumarate 2 puffs IH BID 09/24/23 09/24/23 [Symbicort 160-4.5 Mcg Inhaler] Losartan/Hydrochlorothiazide 1 each PO DAILY 09/24/23 09/24/23 [Hyzaar 50-12.5 Tablet] Montelukast [Singulair] 10 mg PO DAILY 09/24/23 09/24/23 Progesterone, Micronized 200 mg PO HS 09/24/23 09/24/23 [Prometrium] Benzonatate [Tessalon] 200 mg PO TID PRN #30 cap 03/12/24 Cetirizine HCl/Pseudoephedrine 1 tab PO BID PRN #20 tab 03/12/24 [Zyrtec-D ER 5 mg-120 mg Tablet] predniSONE [Deltasone] 10 mg PO [id number] #42 tab 03/12/24 - Allergies Allergies/Adverse Reactions: Allergies Allergy/AdvReac Type Severity Reaction Status Date / Time amoxicillin Allergy Unknown Verified 03/12/24 15:16 bupropion [From Wellbutrin] Allergy Unknown Verified 03/12/24 15:16 iodine Allergy Unknown Verified 03/12/24 15:16 oxycodone Allergy Unknown Verified 03/12/24 15:16 povidone-iodine Allergy Unknown Verified 03/12/24 15:16 [From Betadine] soap [From Betadine] Allergy Unknown Verified 03/12/24 15:16 - Social History Does the pt smoke?: No Smoking Status: Never smoker Does the pt drink ETOH?: No Does the pt have substance abuse?: No - POLST Patient has POLST: No PD ED PE NORMAL - Vitals Vital signs reviewed: Yes - General General: Alert and oriented X 3, No acute distress - HEENT HEENT: Ears normal, Moist mucous membranes, Pharynx benign - Neck Neck: Supple, no meningeal sign, No adenopathy - Cardiac Cardiac: RRR, Strong equal pulses - Respiratory Respiratory: No respiratory distress, Other (Minimal wheeze bilaterally) - Derm Derm: Warm and dry - Neuro Neuro: Alert and oriented X 3 - Psych Psych: Normal mood, Normal affect Results - Vitals Vitals: Vital Signs - 24 hr 03/12/24 03/12/24 03/12/24 15:11 15:12 15:15 Temperature 36.3 C L Heart Rate 87 64 Respiratory 17 20 17 Rate Blood Pressure 176/73 H O2 Saturation 98 Oxygen O2 Source Room air - Labs Labs: Laboratory Tests 03/12/24 03/12/24 15:00 15:00 Nasal Adenovirus (PCR) NOT DETECTED Nasal B. parapertussis DNA (PCR) NOT DETECTED Nasal Coronavir 229E PCR NOT DETECTED Nasal Coronavir HKU1 PCR NOT DETECTED Nasal Coronavir NL63 PCR NOT DETECTED Nasal Coronavir OC43 PCR NOT DETECTED Nasal Enterovir/Rhinovir PCR NOT DETECTED Nasal Influenza B PCR NOT DETECTED Nasal Influenza A PCR NOT DETECTED Nasal Parainfluen 1 PCR NOT DETECTED Nasal Parainfluen 2 PCR NOT DETECTED Nasal Parainfluen 3 PCR NOT DETECTED Nasal Parainfluen 4 PCR NOT DETECTED Nasal RSV (PCR) NOT DETECTED Nasal B.pertussis DNA PCR NOT DETECTED Nasal C.pneumoniae (PCR) NOT DETECTED Sumanth Human Metapneumo PCR NOT DETECTED Nasal M.pneumoniae (PCR) NOT DETECTED Nasal SARS-CoV-2 (PCR) NOT DETECTED Group A Strep Rapid Negative - Rads (name of study) Chest x-ray Relevant Findings:: Final report received, See rad report PD Medical Decision Making - ED course Complexity details: reviewed results, re-evaluated patient, considered differential, d/w patient ED course: Patient is well-appearing, nontoxic. Afebrile. No hypoxia. No respiratory distress. Respiratory PCR is negative. Strep test is negative. Chest x-ray does not show any evidence of pneumonia. No indication for antibiotics at this time. Will place her on decongestants, steroids and cough medication. We will continue her albuterol at home. Patient counseled regarding signs and symptoms for which I believe and urgent re-evaluation would be necessary. Patient with good understanding of and agreement to plan and is comfortable going home at this time This document was made in part using voice recognition software. While efforts are made to proofread this document, sound alike and grammatical errors may occur. Departure - Departure Disposition: Home, Self Care Clinical Impression: Viral URI Condition: Good Instructions: ED Viral Syndrome Follow-Up: SHAWANDA SIDHU PA-C [Primary Care Provider] - Within 1 week Prescriptions: predniSONE [Deltasone] 10 mg PO [id number] #42 tab Benzonatate [Tessalon] 200 mg PO TID PRN #30 cap PRN Reason: Cough Cetirizine HCl/Pseudoephedrine [Zyrtec-D ER 5 mg-120 mg Tablet] 1 tab PO BID PRN #20 tab PRN Reason: nasal congestion Comments: Please follow-up with your doctor for further care. Your chest x-ray, strep swab and respiratory PCR negative. This appears to be a viral syndrome. We will place you on steroids, cough medication and decongestants for home. This usually will improve in about another week. Your [facility] was sent to [facility] in [place]. Forms: PCP List Discharge Date/Time: 03/12/24 17:15
== END 2024-03-12 17:15 | disposition home or self-care (01) ==
LOC: ED 14:59
DX: J06.9 Acute upper respiratory infection, unspecified (principal); I10 Essential (primary) hypertension; Z79.899 Other long term (current) drug therapy
CPT/HCPCS: 87070; 87430; 87633; 94640; 94664; 99284

== ENCOUNTER 2024-04-06 12:45 | Emergency (ER) | payer MEDICAID ==
--- NOTE | 2024-04-06 15:48 | ED Physician Documentation ---
PD HPI SKIN - Stated complaint Stated Complaint: RT HAND PX/SWELLING - Chief complaint Chief Complaint: Ext Problem - History obtained from History obtained from: Patient - History of Present Illness Timing - onset: How many days ago (few) Timing - duration: Days Timing - details: Gradual onset, Still present (was hving fingr=er swelling and tender without rash nor sores. Seen in ED and Rx Keflex for concern o finfection. Pt states hot frame tender and increasedswelling. Also noted red blood in stool today. Noabd pain.) Quality / character: Discolored, Swelling Associated symptoms: No: Fever, Myalgias Contributing factors: No: Exposed to Poison cayden/oak, Insect bite /sting, Recent illness Similar symptoms before: Has not had sx before Recently seen: Emergency Dept (2 days ago for same, with Rx keflex.) Review of Systems Constitutional: denies: Fever, Chills GI: reports: Nausea, Vomiting PD PAST MEDICAL HISTORY - Past Medical History Past Medical History: Yes Cardiovascular: Hypertension Respiratory: Asthma, Sleep apnea Neuro: None Endocrine/Autoimmune: None GI: GERD, Hiatal hernia SPECIAL EVENTS MANAGER: None : None HEENT: None Psych: None Musculoskeletal: None - Past Surgical History Past Surgical History: Yes General: Cholecystectomy /SPECIAL EVENTS MANAGER: section, 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 - Present Medications Home Medications: Ambulatory Orders Medication Instructions Recorded Confirmed Budesonide/Formoterol Fumarate 2 puffs IH BID 09/24/23 04/06/24 [Symbicort 160-4.5 Mcg Inhaler] Losartan/Hydrochlorothiazide 1 each PO DAILY 09/24/23 04/06/24 [Hyzaar 50-12.5 Tablet] Montelukast [Singulair] 10 mg PO DAILY 09/24/23 04/06/24 cephALEXin [Keflex] 500 mg PO Q6H #28 cap 04/04/24 04/06/24 Atorvastatin [Lipitor] 20 mg PO QPM 04/06/24 04/06/24 Doxycycline Hyclate 100 mg PO BID 7 Days #14 cap 04/06/24 Gabapentin [Neurontin] 300 mg PO HS 04/06/24 04/06/24 HYDROcod/ACETAM 5/325 [[place] 5/325] 1 ea PO Q6H PRN #12 tablet 04/06/24 Ibuprofen [Motrin] 1 tablet PO Q8H PRN 04/06/24 04/06/24 Metoprolol Succinate [Toprol Xl] 12.5 mg PO DAILY PM 04/06/24 04/06/24 dexAMETHasone [Decadron] 4 mg PO DAILY #5 tablet 04/06/24 - Allergies Allergies/Adverse Reactions: Allergies Allergy/AdvReac Type Severity Reaction Status Date / Time amoxicillin Allergy Unknown Verified 04/06/24 12:50 bupropion [From Wellbutrin] Allergy Unknown Verified 04/06/24 12:50 iodine Allergy Unknown Verified 04/06/24 12:50 oxycodone Allergy Unknown Verified 04/06/24 12:50 povidone-iodine Allergy Unknown Verified 04/06/24 12:50 [From Betadine] soap [From Betadine] Allergy Unknown Verified 04/06/24 12:50 - Social History Does the pt smoke?: No Smoking Status: Never smoker Does the pt drink ETOH?: No Does the pt have substance abuse?: No - Immunizations Immunizations are current?: Yes - POLST Patient has POLST: No PD ED PE NORMAL - Vitals Vital signs reviewed: Yes - General General: Alert and oriented X 3, No acute distress, Well developed/nourished - Abdomen Abdomen: Soft - Derm Derm: Normal color, Warm and dry, No rash - Extremities Extremities: No deformity, Other (middle fingers with some swelling. No redness nor skin sores. good cap refill. ) - Neuro Neuro: No motor deficit, No sensory deficit Results - Vitals Vitals: Oxygen O2 Source Room air PD Medical Decision Making - ED course Complexity details: considered differential (pain and swelling in middle fingers. No skin sores. Tender palmar wrist over carpal tunnel area. COnsider carpal tunnel compression. Pain up arm in nerve root pattern but shingles or such would not leave swelling in finger that I would expect. ), d/w patient ED course: I would not connect diarrhea, some blood in stool with the finger swelling direclty, so could be some colitis side effect froma ntibiotic. Fingers could be swelling/apin from carpal tunnel compression and she is tender there reasonably. Departure - Departure Disposition: 01 Home, Self Care Clinical Impression: Finger pain, Finger swelling, Bloody stool Condition: Stable Record reviewed to determine appropriate education?: Yes Follow-Up: SHAWANDA SIDHU PA-C [Primary Care Provider] - Prescriptions: dexAMETHasone [Decadron] 4 mg PO DAILY #5 tablet Doxycycline Hyclate 100 mg PO BID 7 Days #14 cap HYDROcod/ACETAM 5/325 [[place] 5/325] 1 ea PO Q6H PRN #12 tablet PRN Reason: Pain Comments: It is unclear the cause of your swelling and pain in the fingers. I think the consideration of an infection is still a possibility. Since the cephalexin apparently is giving you some intestinal irritation, I would have you stop that. We can change to doxycycline antibiotic. However is not certainly an infection and so we should treat it as an inflammatory process such as carpal tunnel inflammation with swelling of the fin gers and pain or an inflammatory condition such as tendinitis (as opposed to infectious tendinitis),. No signs of rash or redness up to the shoulder or neck which I would anticipate by this point for shingles so less likely that. There is no swelling or pain in the thumb or little finger show seems to be more an effect of the median nerve and carpal tunnel type area. Use the wrist splint fairly regularly for the next several days to week. We can change antibiotic and also add a steroid anti-inflammatory. I would decrease the ibuprofen you are taking back to your usual dose. Tylenol 500 to 650 mg 4 times a day for pain. I wrote a prescription for hydrocodone to use every 4-6 hours if needed for worse pain. Recheck if not improving well over the next several days. My narcotic instructionsI am prescribing a short course of narcotic pain medication for you. These are potentially dangerous and addictive medications that should be used carefully. These medications may constipate you. Take an [id number] stool softener such as docusate twice daily with plenty of water while taking these medications. If you go 24 hours without a bowel movement, take [id number] MiraLAX, per package instructions. Do not drink or drive while taking these medications. If you received narcotic or sedating medications while in the emergency department do not drive for 24 hours. Store this medication in a safe, secure place and out of reach of children. It is a violation of federal law to give or sell this medication to another person or to use in a manner other than prescribed. The ED will not refill narcotic prescriptions, including prescriptions lost or stolen. You can dispose of unwanted medications at the [facility]'s office or at several pharmacies such as [facility]. Forms: PCP List Discharge Date/Time: 04/06/24 16:35
[2024-04-06] MEDS: dexAMETHasone 4 MG TABLET PO STA (16:27)
[2024-04-06] MEDS: DOXYCYCLINE 100 MG TABLET PO STA (16:27)
[2024-04-06 16:38] VITALS: BP 156/74; O2SAT 98
== END 2024-04-06 16:35 | disposition home or self-care (01) ==
LOC: ED 12:45
DX: M79.644 Pain in right finger(s) (principal); M79.89 Other specified soft tissue disorders; K92.1 Melena; I10 Essential (primary) hypertension; Z79.899 Other long term (current) drug therapy
CPT/HCPCS: 99283